=== PATIENT | male | born 1980 | race Caucasian/White ===

== ENCOUNTER 2019-07-31 13:20 | Observation (INO) ==
[2019-07-31 15:40] LABS: Hematocrit 29.9 % (37.5-50.1); Immature Granulocytes % 0.4 % (0-4)
[2019-07-31 15:41] LABS: Basophils % 0.4 %; Eosinophils % 0.5 %; Hemoglobin 10.5 g/dL (12.9-16.9); Immature Platelets 7.5 % (1.1-6.1); Lymphocytes # 1.2 K/mcL (0.6-4.6); Mean Corpuscular HGB Conc 35.1 g/dL (31.6-35.5); Mean Corpuscular Hemoglobin 35.7 pg (28.0-33.3); Mean Corpuscular Volume 101.7 fL (83.0-100.0); Mean Platelet Volume 12.6 fL (9.4-12.4); Monocytes # 0.7 K/mcL (0.0-1.3); Monocytes % 7.8 %; Red Blood Count 2.94 M/mcL (4.19-5.50); Red Cell Distribution Width 14.8 % (11.5-14.5); Segmented Neutrophils % 76.9 %; White Blood Count 8.4 K/mcL (4.3-11.1)
[2019-07-31 15:57] LABS: Neutrophils # 6.5 K/mcL (1.6-8.9); Platelet Count 70 K/mcL (140-400)
[2019-07-31] MEDS ORDERED: Isovue-370 500 ML BOTTLE IVP ONE (16:25)
[2019-07-31] MEDS ORDERED: Azithromycin 500 MG in 0.9 % Sodium Chloride 250 ML IVPB ONE (16:26)
[2019-07-31] MEDS ORDERED: cefTRIAXone 1,000 MG in Water for inj. (sterile) 10 ML IVP ONE (16:26)
[2019-07-31 16:35] LABS: INR 1.4; Prothrombin Time 16.4 Seconds (9.4-12.1)
[2019-07-31] MEDS: Nicotine 21 MG PATCH.TD24 TD SCH (17:00)
[2019-07-31 17:25] LABS: Alanine Aminotransferase 36 Units/L (7-52); Albumin 2.2 g/dL (3.5-5.7); Albumin/Globulin Ratio 0.5 (1.1-2.2); Alkaline Phosphatase 141 Units/L (34-104); Aspartate Amino Transferase 69 Units/L (13-39); BUN/Creatinine Ratio 18 (6-26); Bilirubin,Direct 0.7 mg/dL (0.0-0.2); Bilirubin,Indirect 0.9 mg/dL (0.0-1.0); Bilirubin,Total 1.6 mg/dL (0.3-1.0); Blood Urea Nitrogen 12 mg/dL (6-20); Calcium 7.8 mg/dL (8.6-10.3); Carbon Dioxide 22 mEq/L (23-29); Chloride 105 mEq/L (98-107); Globulin 4.8 g/dL (2.4-3.5); Glucose 82 mg/dL (70-105); Lipase 35 Units/L (11-82); Osmolality,Calculated 277 (280-300); Potassium 4.3 mEq/L (3.5-5.1); Sodium 134 mEq/L (136-145); eGFR For African Americans > 60 (> 60); eGFR For Non-African Americans > 60 (> 60)
[2019-07-31] MEDS ORDERED: Naloxone 0.4 MG/ML INJ IVP PRN (22:12)
[2019-07-31] MEDS ORDERED: Ondansetron ODT 4 MG TAB.RAPDIS SL PRN (22:12)
[2019-07-31] MEDS ORDERED: Acetaminophen 325 MG TABLET PO PRN (22:31)
[2019-08-01 02:23] LABS: Adenovirus Not Detected (Not Detect); Bordetella Pertussis Not Detected (Not Detect); Chlamydophila pneumoniae Not Detected (Not Detect); Coronavirus 229E Not Detected (Not Detect); Coronavirus HKU1 Not Detected (Not Detect); Coronavirus NL63 Not Detected (Not Detect); Coronavirus OC43 Not Detected (Not Detect); Human Metapneumovirus Not Detected (Not Detect); Human Rhinovirus/Enterovirus Not Detected (Not Detect); Influenza A Subtype 2009 H1 Not Detected (Not Detect); Influenza B Not Detected (Not Detect); Mycoplasma pneumoniae Not Detected (Not Detect); Parainfluenza Virus 1 Not Detected (Not Detect); Parainfluenza Virus 2 Not Detected (Not Detect); Parainfluenza Virus 3 Not Detected (Not Detect); Parainfluenza Virus 4 Not Detected (Not Detect); Respiratory Syncytial Virus Not Detected (Not Detect)
[2019-08-01 02:34] LABS: Immature Granulocytes % 0.3 % (0-4); Lymphocytes % 13.2 %; Mean Corpuscular Volume 100.4 fL (83.0-100.0)
[2019-08-01 02:35] LABS: Basophils % 0.3 %; Eosinophils # 0.1 K/mcL (0.0-0.6); Eosinophils % 0.6 %; Hematocrit 27.6 % (37.5-50.1); Hemoglobin 9.8 g/dL (12.9-16.9); Immature Platelets 7.4 % (1.1-6.1); Lymphocytes # 1.3 K/mcL (0.6-4.6); Mean Corpuscular HGB Conc 35.5 g/dL (31.6-35.5); Mean Corpuscular Hemoglobin 35.6 pg (28.0-33.3); Mean Platelet Volume 12.3 fL (9.4-12.4); Monocytes # 0.8 K/mcL (0.0-1.3); Monocytes % 8.8 %; Neutrophils # 7.4 K/mcL (1.6-8.9); Red Blood Count 2.75 M/mcL (4.19-5.50); Red Cell Distribution Width 15.1 % (11.5-14.5); Segmented Neutrophils % 76.8 %; White Blood Count 9.6 K/mcL (4.3-11.1)
[2019-08-01 02:39] LABS: Alanine Aminotransferase 35 Units/L (7-52); Albumin 2.1 g/dL (3.5-5.7); Albumin/Globulin Ratio 0.4 (1.1-2.2); Alkaline Phosphatase 146 Units/L (34-104); Aspartate Amino Transferase 70 Units/L (13-39); BUN/Creatinine Ratio 17 (6-26); Bilirubin,Total 1.1 mg/dL (0.3-1.0); Blood Urea Nitrogen 11 mg/dL (6-20); Calcium 7.6 mg/dL (8.6-10.3); Carbon Dioxide 22 mEq/L (23-29); Chloride 106 mEq/L (98-107); Globulin 4.7 g/dL (2.4-3.5); Glucose 82 mg/dL (70-105); Magnesium 1.6 mg/dL (1.6-2.6); Osmolality,Calculated 274 (280-300); Potassium 4.3 mEq/L (3.5-5.1); Sodium 133 mEq/L (136-145); Total Protein 6.8 g/dL (6.4-8.9); eGFR For African Americans > 60 (> 60); eGFR For Non-African Americans > 60 (> 60)
[2019-08-01 02:41] LABS: % Iron Saturation 16 % (20-55); Iron 34 mcg/dL (65-175); Platelet Count 63 K/mcL (140-400); Transferrin 150 mg/dL (203-362)
[2019-08-01 02:59] LABS: Ferritin 296 ng/mL (20-250)
[2019-08-01 04:15] LABS: Platelet Estimate Decreased (Normal)
[2019-08-01] MEDS ORDERED: *HR* Heparin 5,000 UNIT/ML VIAL SQ SCH (06:00)
[2019-08-01] MEDS: cefTRIAXone 1,000 MG in 0.9 % Sodium Chloride Mini Bag 100 ML IVPB SCH (08:16)
[2019-08-01] MEDS: Lisinopril 20 MG TABLET PO SCH (08:18)
[2019-08-01] MEDS: Azithromycin 250 MG TABLET PO SCH (08:19)
[2019-08-01] MEDS: Nicotine 21 MG PATCH.TD24 TD SCH (08:19)
[2019-08-01] MEDS: PARoxetine 20 MG TABLET PO SCH (08:19)
[2019-08-01] MEDS ORDERED: cefTRIAXone 1,000 MG in 0.9 % Sodium Chloride Mini Bag 100 ML IVPB SCH (09:00)
[2019-08-01] MEDS ORDERED: Azithromycin 500 MG in 0.9 % Sodium Chloride 250 ML IVPB SCH (09:00)
[2019-08-01] MEDS: Chloraseptic Spray 177 ML BOTTLE MM PRN (11:40)
[2019-08-01 11:47] LABS: Basophils,Pleural Fluid 0 %; Eosinophils,Pleural Fluid 0 %
[2019-08-01 11:51] LABS: Appearance of Pleural Fl Hazy (Clear)
[2019-08-01 11:52] LABS: Glucose,Pleural Fluid 118 mg/dL (No Ref Range); LDH,Pleural Fluid 42 Units/L (No Ref Range); Total Protein,Pleural Fluid < 3.0 g/dL
[2019-08-01 12:00] LABS: Eosinophils,Peritoneal Fluid 0 %
[2019-08-01 12:01] LABS: Appearance of Peritoneal Fl BLOODY (Clear); Basophils,Peritoneal Fluid 0 %; Volume of Peritoneal Fluid 0.5 mL
[2019-08-01] MEDS: Furosemide 20 MG TABLET PO SCH (12:20)
[2019-08-01 13:04] LABS: Amylase,Peritoneal Fluid < 10 Units/L (No Ref Range); Glucose,Peritoneal Fluid 28 mg/dL (No Ref Range); LDH,Peritoneal Fluid 766 Units/L (No Ref Range); Total Protein,Peritoneal Fluid < 3.0 g/dL
[2019-08-02] MEDS: Nicotine 21 MG PATCH.TD24 TD SCH (07:41)
[2019-08-02] MEDS: Furosemide 20 MG TABLET PO SCH (07:42)
[2019-08-02] MEDS: Azithromycin 250 MG TABLET PO SCH (07:42)
[2019-08-02] MEDS: Lisinopril 20 MG TABLET PO SCH (07:42)
[2019-08-02] MEDS: PARoxetine 20 MG TABLET PO SCH (07:42)
[2019-08-02] MEDS: cefTRIAXone 1,000 MG in 0.9 % Sodium Chloride Mini Bag 100 ML IVPB SCH (07:44)
[2019-08-02] MEDS: Chloraseptic Spray 177 ML BOTTLE MM PRN (07:47)
[2019-08-02 08:06] VITALS: BP 138/91
[2019-08-03 06:31] LABS: Fluid Source for Albumin PERITONEAL
== END 2019-08-02 10:10 | disposition home or self-care (01) ==
LOC: 2ANU 13:20 → EMEROOARM 13:20 → 2ANU 22:06
PROVIDERS: ADMIT Internal Medicine; ATTEND Internal Medicine

== ENCOUNTER 2021-11-05 06:45 | Inpatient (IN) ==
[2021-11-05] MEDS ORDERED: Naloxone 0.4 MG/ML INJ IVP PRN (15:36)
[2021-11-05] MEDS ORDERED: Ondansetron ODT 4 MG TAB.RAPDIS SL PRN (15:36)
[2021-11-05] MEDS: Octreotide 400 MCG in 0.9 % Sodium Chloride 100 ML IVC SCH ×2 (16:15→22:50)
[2021-11-05] MEDS: 0.9 % Sodium Chloride 1,000 ML IVC SCH (16:19)
[2021-11-05 16:43] LABS: Hematocrit 22.9 % (37.5-50.1); Hemoglobin 8.2 g/dL (12.9-16.9)
[2021-11-05] MEDS: cefTRIAXone 1,000 MG in 0.9 % Sodium Chloride 10 ML IVP SCH (18:13)
[2021-11-05] MEDS: Pantoprazole 40 MG VIAL IVP SCH (18:17)
[2021-11-05] MEDS ORDERED: Melatonin 3 MG TABLET PO PRN (21:18)
[2021-11-06 00:34] LABS: Immature Granulocytes % 0.3 % (0-4); Red Cell Distribution Width 14.6 % (11.5-14.5)
[2021-11-06 00:35] LABS: INR 1.4; Prothrombin Time 16.1 Seconds (9.4-12.1)
[2021-11-06 00:36] LABS: Basophils # 0.1 K/mcL (0.0-0.2); Basophils % 0.7 %; Eosinophils # 0.2 K/mcL (0.0-0.6); Eosinophils % 2.8 %; Hematocrit 19.1 % (37.5-50.1); Hemoglobin 6.2 g/dL (12.9-16.9); Immature Platelets 9.5 % (1.1-6.1); Lymphocytes # 1.5 K/mcL (0.6-4.6); Lymphocytes % 22.8 %; Mean Corpuscular HGB Conc 32.5 g/dL (31.6-35.5); Mean Corpuscular Hemoglobin 31.8 pg (28.0-33.3); Mean Corpuscular Volume 97.9 fL (83.0-100.0); Mean Platelet Volume 12.4 fL (9.4-12.4); Monocytes # 0.6 K/mcL (0.0-1.3); Monocytes % 9.4 %; Neutrophils # 4.3 K/mcL (1.6-8.9); Red Blood Count 1.95 M/mcL (4.19-5.50); White Blood Count 6.7 K/mcL (4.3-11.1)
[2021-11-06 00:41] LABS: Platelet Count 98 K/mcL (140-400)
[2021-11-06 00:46] LABS: Alanine Aminotransferase 132 Units/L (7-52); Albumin 2.4 g/dL (3.5-5.7); Alkaline Phosphatase 60 Units/L (34-104); Aspartate Amino Transferase 148 Units/L (13-39); BUN/Creatinine Ratio 23 (6-26); Bilirubin,Total 1.1 mg/dL (0.3-1.0); Blood Urea Nitrogen 19 mg/dL (6-20); Calcium 7.1 mg/dL (8.6-10.3); Carbon Dioxide 22 mEq/L (23-29); Chloride 108 mEq/L (98-107); Globulin 2.5 g/dL (2.4-3.5); Glucose 195 mg/dL (70-105); Magnesium 1.5 mg/dL (1.6-2.6); Osmolality,Calculated 286 (280-300); Phosphorous 1.7 mg/dL (2.7-4.5); Potassium 3.9 mEq/L (3.5-5.1); Sodium 134 mEq/L (136-145); Total Protein 4.9 g/dL (6.4-8.9); eGFR For African Americans > 60 (> 60); eGFR For Non-African Americans > 60 (> 60)
[2021-11-06] MEDS ORDERED: 0.9 % Sodium Chloride 250 ML ONE ×2 (02:18→08:54)
[2021-11-06] MEDS: 0.9 % Sodium Chloride 1,000 ML IVC SCH (02:19)
[2021-11-06] MEDS ORDERED: 0.9 % Sodium Chloride 1,000 ML IV ONE (03:44)
[2021-11-06] MEDS: Pantoprazole 40 MG VIAL IVP SCH (05:08)
[2021-11-06 06:41] LABS: Hemoglobin 6.8 g/dL (12.9-16.9); Mean Corpuscular Volume 97.1 fL (83.0-100.0); Red Cell Distribution Width 14.6 % (11.5-14.5)
[2021-11-06 06:42] LABS: Hematocrit 20.2 % (37.5-50.1); Immature Platelets 9.1 % (1.1-6.1); Mean Corpuscular HGB Conc 33.7 g/dL (31.6-35.5); Mean Corpuscular Hemoglobin 32.7 pg (28.0-33.3); Red Blood Count 2.08 M/mcL (4.19-5.50); White Blood Count 5.1 K/mcL (4.3-11.1)
[2021-11-06] MEDS: Octreotide 400 MCG in 0.9 % Sodium Chloride 100 ML IVC SCH (07:41)
[2021-11-06] MEDS ORDERED: Potassium Phosphate 44 MEQ in 0.9 % Sodium Chloride 250 ML IVPB ONE (08:03)
[2021-11-06] MEDS ORDERED: *HR* Propofol 200 MG/20 ML VIAL IVP ONE (08:47)
[2021-11-06] MEDS ORDERED: Ondansetron 4 MG/2 ML VIAL ONE (08:47)
[2021-11-06] MEDS ORDERED: *HR* Rocuronium Bromide 50 MG/5 ML VIAL ONE (08:47)
[2021-11-06] MEDS ORDERED: Lidocaine HCL 4 ML Topical Solution (Laryng-O-Jet Kit Sterile Pak) TP ONE (08:47)
[2021-11-06] MEDS ORDERED: *HR* FentaNYL (PF) 100 MCG/2 ML VIAL ONE (08:47)
[2021-11-06] MEDS ORDERED: *HR* Midazolam HCl 2 MG/2 ML VIAL ONE (08:47)
[2021-11-06] MEDS ORDERED: *HR* Succinylcholine 200 MG/10 ML VIAL IVP ONE (08:47)
[2021-11-06] MEDS: cefTRIAXone 1,000 MG in 0.9 % Sodium Chloride 10 ML IVP SCH (08:49)
[2021-11-06] MEDS ORDERED: Lidocaine -MPF 2% 2 ML VIAL ONE (08:51)
[2021-11-06] MEDS ORDERED: Albumin Human 5% 0 GM/0 ML IV.SOLN ONE (08:54)
[2021-11-06] MEDS ORDERED: Norepinephrine 4 MG/254 ML IV.SOLN IVC SCH (10:30)
[2021-11-06 11:01] VITALS: O2SAT 95
[2021-11-06 11:30] VITALS: BP 89/58
[2021-11-06 12:02] VITALS: TEMP 98.7
[2021-11-06 13:41] VITALS: PULSE 85
== END 2021-11-06 14:45 | disposition left against medical advice (07) | DRG 368 ==
LOC: 2NENU → SUATTDRO 15:07 → ICNU 11-06 06:12
PROVIDERS: ADMIT Internal Medicine; ATTEND Internal Medicine